=== PATIENT | female | born 1930 | race Caucasian/White ===

== ENCOUNTER 2018-01-08 20:46 | Inpatient (IN) | payer MEDICARE, OTHER ==
[~2018-01-08] VITALS: Ht 160 cm; Wt 90.8 kg
--- NOTE | 2018-01-08 21:00 | NUR ---
Dr. Mccoy at bedside for MSE.
[2018-01-08] MEDS ORDERED: IV NORMAL SALINE 1000 ML BAG IV ONE (21:15)
[2018-01-08] MEDS ORDERED: LORA1TAB PO (21:24)
[2018-01-08] MEDS ORDERED: URSO300C12 PO (21:24)
[2018-01-08] MEDS ORDERED: OMEP20TA5 PO (21:24)
[2018-01-08] MEDS ORDERED: PRED1TAB PO (21:24)
[2018-01-08] MEDS ORDERED: LISI10TA5 PO (21:24)
[2018-01-08] MEDS ORDERED: CALCIO PO (21:24)
[2018-01-08] MEDS ORDERED: AMIO200T4 PO (21:24)
[2018-01-08] MEDS ORDERED: POTA10CA43 PO (21:24)
[2018-01-08] MEDS ORDERED: FOLI1TAB16 PO (21:24)
[2018-01-08] MEDS ORDERED: FERR325T24 PO (21:24)
[2018-01-08] MEDS ORDERED: GLIP5TAB13 PO (21:24)
[2018-01-08] MEDS ORDERED: AMLO5TAB2 PO (21:24)
[2018-01-08] MEDS ORDERED: PRAV20TA4 PO (21:24)
--- NOTE | 2018-01-08 21:24 | NUR ---
Pt out of ER for CT.
[2018-01-08 21:27] LABS: BASOPHILS # (AUTO) 0.1 K/uL (0.0-8.0); BASOPHILS % (AUTO) 0.8 % (0.0-2.0); EOSINOPHILS # (AUTO) 0.2 K/uL (0.0-0.7); EOSINOPHILS % (AUTO) 3.7 % (0.0-7.0); HEMATOCRIT 38.8 % (31.2-41.9); HEMOGLOBIN 12.1 g/dL (10.9-14.3); LYMPHOCYTES # (AUTO) 0.7 K/uL (20.0-40.0); LYMPHOCYTES % (AUTO) 11.5 % (20.5-51.5); MEAN CORPUSCULAR HEMOGLOBIN 25.2 uug (24.7-32.8); MEAN CORPUSCULAR HGB CONC 31 g/dL (32.3-35.6); MEAN CORPUSCULAR VOLUME 80.7 fL (75.5-95.3); MONOCYTES # (AUTO) 0.6 K/uL (2.0-10.0); MONOCYTES % (AUTO) 8.8 % (0.0-11.0); NEUTROPHILS # (AUTO) 4.8 K/uL (1.8-8.9); NEUTROPHILS % (AUTO) 75.2 % (38.5-71.5); PLATELET COUNT (AUTO) 344 K/uL (179-408); RED BLOOD CELL COUNT(AUTO) 4.81 MIL/uL (3.63-4.92); WHITE BLOOD COUNT (AUTO) 6.4 K/uL (3.8-11.8)
[2018-01-08 21:31] LABS: CARBON DIOXIDE 30 mmol/L (21-32); CHLORIDE 104 mmol/L (98-107); CREATININE 1.1 mg/dL (0.6-1.3); GLUCOSE 104 mg/dL (74-106); POTASSIUM 3.8 mmol/L (3.5-5.1); UREA NITROGEN, BLOOD 12 mg/dL (7-18)
[2018-01-08 21:43] LABS: ALANINE AMINOTRANSFERASE 23 U/L (14-59); ALKALINE PHOSPHATASE 51 U/L (50-136); ASPARTATE AMINOTRANSFERASE 19 U/L (15-37); BILIRUBIN,DIRECT 0.1 mg/dL (0.0-0.2); BILIRUBIN,TOTAL 0.3 mg/dL (0.2-1.0); TOTAL PROTEIN, SERUM 6.6 g/dL (6.4-8.2)
--- NOTE | 2018-01-08 21:44 | NUR ---
Pt back to ER from CT.
[2018-01-08] MEDS ORDERED: PIPERACILLIN/TAZOBACTAM/D5W 3.375 G in PREMIXED 1 EACH IV STA (22:04)
[2018-01-08] MEDS ORDERED: LEVOFLOXACIN 500 MG/D5W 100ML PIGGYBACK IV ONE (22:15)
--- NOTE | 2018-01-08 22:47 | NUR ---
[facility] for panel call.
[2018-01-08 23:02] LABS: *BILIRUBIN,URIN NEGATIVE (NEGATIVE); *BLOOD, URINE NEGATIVE (NEGATIVE); *CLARITY,URINE CLEAR (CLEAR); *COLOR,URINE YELLOW (YELLOW); *KETONES,URINE NEGATIVE (NEGATIVE); *PROTEIN,URINE TRACE (NEGATIVE); *UROBILINOGEN,URINE 0.2 E.U./dl (NORMAL); LEUKOCYTE ESTERASE ,URINE NEGATIVE (NEGATIVE); NITRITE, URINE NEGATIVE (NEGATIVE); UGLUCOSE NEGATIVE (NEGATIVE)
[2018-01-08] MEDS ORDERED: LEVOFLOXACIN 500 MG/D5W 100 ML ONE (23:06)
[2018-01-08] MEDS ORDERED: PIPERACILLIN/TAZOBACTAM/D5W 50 ML IV ONE (23:06)
--- NOTE | 2018-01-08 23:06 | NUR ---
Dr. Mccoy on panel call with Dr. Abdelrahman Mcneil.
[2018-01-08 23:12] LABS: RBC,URINE 0-3 /HPF (0-3)
[2018-01-08 23:13] LABS: BACTERIA,URINE NONE SEEN /HPF (NONE SEEN); SQUAMOUS EPITHELIAL CELL,UR FEW /HPF (NONE SEEN)
[2018-01-08] MEDS ORDERED: ONDANSETRON 4 MG/2 ML VIAL IV PRN (23:30)
[2018-01-08] MEDS ORDERED: ALBUTEROL SULFATE 2.5 MG/3 ML NEBU NEB PRN (23:30)
[2018-01-08] MEDS ORDERED: MORPHINE SULFATE 2 MG/1 ML DISP.SYRIN IV PRN (23:30)
[2018-01-08] MEDS ORDERED: GUAIFENESIN/DEXTROMETHORPHAN 5 ML UDC PO PRN (23:30)
--- NOTE | 2018-01-08 23:45 | NUR ---
Report given to Rhianna ZHANG Tele.
--- NOTE | 2018-01-09 00:35 | NUR ---
ADMITTED A 87 YEARS OLD FEMALE WITH DIAGNOSIS OF SEPSIS. ACCOMPANIED BY PATIENT SON JOHNNY. PATIENT AAOX3. IN NO ACUTE DISTRESS. ON CONTINUOUS O2 AT 2LPM VIA NC IN PLACE. O2 SAT AT 98%. IV SITE ON RIGHT AC INTACT AND PATENT. WILL START TO RUN LEVAQUIN IV ABX AND PT TO CONTINUE WITH IV BOLUS UNTIL BAG 1 BAG IS FINISH PER ER NURSE BURKE. ROUTINE ADMISSION CARE DONE. PLAN OF CARE INITIATED. SAFETY MEASURE INITIATED AND CALL BARAJAS WITHIN REACH.
[2018-01-09 00:40] VITALS: BP 137/67
--- NOTE | 2018-01-09 00:46 | NUR ---
Pt sent to [facility]/Tele floor. IV fluids/antibiotic to continue infusing, endorsed to nurse Rhianna ZHANG Tele.
[2018-01-09] MEDS ORDERED: LEVOFLOXACIN 500 MG/D5W 500 MG in PREMIXED 1 EACH IV SCH (01:00)
[2018-01-09] MEDS: ACETAMINOPHEN 325 MG TABLET PO PRN (01:43)
[2018-01-09 03:38] VITALS: BP 125/38
[2018-01-09 06:03] LABS: BASOPHILS # (AUTO) 0.1 K/uL (0.0-8.0); BASOPHILS % (AUTO) 0.9 % (0.0-2.0); EOSINOPHILS # (AUTO) 0.2 K/uL (0.0-0.7); EOSINOPHILS % (AUTO) 2.7 % (0.0-7.0); HEMATOCRIT 33.7 % (31.2-41.9); HEMOGLOBIN 10.4 g/dL (10.9-14.3); LYMPHOCYTES # (AUTO) 0.7 K/uL (20.0-40.0); LYMPHOCYTES % (AUTO) 9.8 % (20.5-51.5); MEAN CORPUSCULAR HEMOGLOBIN 25.4 uug (24.7-32.8); MEAN CORPUSCULAR HGB CONC 31 g/dL (32.3-35.6); MONOCYTES # (AUTO) 0.7 K/uL (2.0-10.0); MONOCYTES % (AUTO) 9.8 % (0.0-11.0); NEUTROPHILS # (AUTO) 5.6 K/uL (1.8-8.9); NEUTROPHILS % (AUTO) 76.8 % (38.5-71.5); PLATELET COUNT (AUTO) 299 K/uL (179-408); RED BLOOD CELL COUNT(AUTO) 4.11 MIL/uL (3.63-4.92); WHITE BLOOD COUNT (AUTO) 7.3 K/uL (3.8-11.8)
[2018-01-09] MEDS: PANTOPRAZOLE SODIUM 40 MG TABLET.DR PO SCH (06:09)
--- NOTE | 2018-01-09 06:16 | NUR ---
PATIENT AAOX3. IN NO ACUTE DISTRESS. ON CONTINUOUS O2 AT 2LPM VIA NC IN PLACE. O2 SAT AT 98%. OCCASIONAL COUGH AND ABLE TO EXPECTORATE PHLEGM. NSR ON TELE AT 60/MIN. IV SITE ON RIGHT AC INTACT AND PATENT. NEEDS ATTENDED TO AND MET. SAFETY MEASURE MAINTAINED AND CALL BARAJAS WITHIN REACH.
[2018-01-09 06:29] LABS: ALANINE AMINOTRANSFERASE 20 U/L (14-59); ALKALINE PHOSPHATASE 40 U/L (50-136); ASPARTATE AMINOTRANSFERASE 16 U/L (15-37); BILIRUBIN,TOTAL 0.2 mg/dL (0.2-1.0); CARBON DIOXIDE 24 mmol/L (21-32); CHLORIDE 109 mmol/L (98-107); CREATININE 1.2 mg/dL (0.6-1.3); GLUCOSE 110 mg/dL (74-106); MAGNESIUM 1.7 mg/dL (1.8-2.4); PHOSPHOROUS 3.2 mg/dL (2.5-4.9); POTASSIUM 4.1 mmol/L (3.5-5.1); TOTAL PROTEIN, SERUM 5.6 g/dL (6.4-8.2); UREA NITROGEN, BLOOD 13 mg/dL (7-18)
--- NOTE | 2018-01-09 07:43 | NUR ---
RECEIVED SHIFT REPORT FROM LEATHA ADAME. PT SITTING ON THE SIDE OF THE BED. DENIES PAIN, C/P, SOB, N/V. BED IN LOW AND LOCKED POSITION WITH BILATERAL UPPER SIDERAILS UP. CALL LIGHT WITHIN REACH. IV ACCESS 20 G IN R AC, SALINE LOCKED. WILL CONTINUE TO MONITOR.
[2018-01-09] MEDS: AMIODARONE HCL 200 MG TABLET PO SCH (08:34)
[2018-01-09] MEDS: AMLODIPINE 5 MG TABLET PO SCH (08:34)
[2018-01-09] MEDS: FOLIC ACID 1 MG TABLET PO SCH (08:34)
[2018-01-09] MEDS: predniSONE 1 MG TABLET PO SCH (08:35)
--- NOTE | 2018-01-09 08:41 | NUR ---
PT REFUSES BILATERAL UPPER SIDERAILS TO BE UP. ONLY UPPER LEFT SIDERAIL IS UP, PER PT'S REQUEST. WILL PROVIDE FREQUENT VISUAL MONITORING TO ENSURE PT SAFETY.
--- NOTE | 2018-01-09 08:43 | NUR ---
PT NSR ON TELE MONITORING - RANGING IN THE 70 BPM.
[2018-01-09] MEDS: URSODIOL 300 MG CAPSULE PO SCH (08:45)
--- NOTE | 2018-01-09 08:45 | NUR ---
PT TAKEN DOWN TO RADIOLOGY VIA W/C BY TRANSPORT.
[2018-01-09] MEDS ORDERED: FERROUS SULFATE 325 MG TABEC PO SCH (09:00)
--- NOTE | 2018-01-09 09:15 | NUR ---
PT ARRIVED BACK ON TELE FLOOR VIA W/C BY TRANSPORT.
[2018-01-09 10:53] VITALS: BP 127/60
--- NOTE | 2018-01-09 11:22 | NUR ---
PT RESTING IN BED AT THIS TIME. NIRMAL PAIN, C/P, SOB, N/V. NSR ON TELE MONITORING. CALL LIGHT WITHIN REACH. PT STILL REFUSING USE BILATERAL UPPER SIDERAILS. WILL CONTINUE TO MONITOR.
[2018-01-09] MEDS ORDERED: MAGNESIUM SULFATE/D5W 100 ML IV SCH (11:30)
[2018-01-09 12:00] LABS: IRON, SERUM 16 ug/dL (50-175)
[2018-01-09] MEDS ORDERED: IPRATROPIUM BROMIDE 0.5 MG/2.5 ML NEBU NEB PRN (12:00)
--- NOTE | 2018-01-09 13:36 | NUR ---
PT NSR ON TELE MONITORING. RECEIVED ORDER TO D/C TELE. PT NOW ON MED-SURG STATUS.
[2018-01-09] MEDS: GABAPENTIN 100 MG CAPSULE PO SCH ×2 (14:45→17:21)
[2018-01-09] MEDS: ALBUTEROL SULFATE 2.5 MG/3 ML NEBU NEB SCH ×2 (15:05→19:28)
[2018-01-09] MEDS: IPRATROPIUM BROMIDE 0.5 MG/2.5 ML NEBU NEB SCH ×2 (15:05→19:28)
[2018-01-09 15:11] VITALS: BP 148/58
[2018-01-09] MEDS: methylPREDNISolone SOD SUCC 40 MG/ML VIAL IV SCH ×2 (16:06→21:06)
[2018-01-09 19:00] VITALS: BP 128/67
--- NOTE | 2018-01-09 19:07 | NUR ---
SHIFT REPORT GIVEN TO LEATHA FARMER. PT SITTING IN CHAIR AT BEDSIDE. STABLE AT THIS TIME, DENIES PAIN, C/P, SOB, N/V. PT IS ON CONTINUOUS O2 2 LPM VIA N/C. CALL LIGHT WITHIN REACH. PT VERBALIZES UNDERSTANDING TO USE CALL LIGHT BEFORE ATTEMPTING TO RETURN TO BED. IV ACCESS 20 G IN R FOREARM, SALINE LOCKED.
--- NOTE | 2018-01-09 19:46 | NUR ---
Received pt sitting up in chair by bedside with 2L O2 via NC in place. Pt denying pain, discomfort and SOB. Made aware of plan of care. Safe environment implemented at all times. Call light within reach.
[2018-01-09] MEDS: FERROUS SULFATE 325 MG TABEC PO SCH (20:06)
[2018-01-09] MEDS: DOCUSATE SODIUM 100 MG CAPSULE PO SCH (20:06)
[2018-01-09] MEDS: LEVOFLOXACIN 250MG /D5W 250 MG in PREMIXED 1 EACH IV SCH (20:06)
[2018-01-10] MEDS: IPRATROPIUM BROMIDE 0.5 MG/2.5 ML NEBU NEB SCH ×4 (00:30→19:12)
[2018-01-10] MEDS: ALBUTEROL SULFATE 2.5 MG/3 ML NEBU NEB SCH ×4 (00:30→19:12)
[2018-01-10] MEDS: ACETAMINOPHEN 325 MG TABLET PO PRN ×3 (02:19→20:22)
[2018-01-10 04:00] VITALS: BP 139/52
[2018-01-10 05:42] LABS: BASOPHILS % (AUTO) 0.5 % (0.0-2.0); EOSINOPHILS % (AUTO) 0.1 % (0.0-7.0); HEMATOCRIT 32.9 % (31.2-41.9); HEMOGLOBIN 10.2 g/dL (10.9-14.3); LYMPHOCYTES # (AUTO) 0.3 K/uL (20.0-40.0); LYMPHOCYTES % (AUTO) 4.7 % (20.5-51.5); MEAN CORPUSCULAR HEMOGLOBIN 25.3 uug (24.7-32.8); MEAN CORPUSCULAR HGB CONC 31 g/dL (32.3-35.6); MEAN CORPUSCULAR VOLUME 81.7 fL (75.5-95.3); MONOCYTES # (AUTO) 0.1 K/uL (2.0-10.0); NEUTROPHILS # (AUTO) 5.7 K/uL (1.8-8.9); NEUTROPHILS % (AUTO) 93.7 % (38.5-71.5); PLATELET COUNT (AUTO) 304 K/uL (179-408); RED BLOOD CELL COUNT(AUTO) 4.02 MIL/uL (3.63-4.92); WHITE BLOOD COUNT (AUTO) 6.1 K/uL (3.8-11.8)
[2018-01-10 06:05] LABS: THYROID STIMULATING HORMONE 0.299 mIU/mL (0.358-3.740)
[2018-01-10 06:10] LABS: ALANINE AMINOTRANSFERASE 23 U/L (14-59); ALKALINE PHOSPHATASE 45 U/L (50-136); ASPARTATE AMINOTRANSFERASE 16 U/L (15-37); BILIRUBIN,TOTAL 0.2 mg/dL (0.2-1.0); CARBON DIOXIDE 24 mmol/L (21-32); CHLORIDE 108 mmol/L (98-107); CHOLESTEROL 183 mg/dL (<200); CREATININE 1.1 mg/dL (0.6-1.3); GLUCOSE 143 mg/dL (74-106); HDL CHOLESTEROL 97 mg/dL (40-60); MAGNESIUM 1.9 mg/dL (1.8-2.4); PHOSPHOROUS 2.2 mg/dL (2.5-4.9); POTASSIUM 4.2 mmol/L (3.5-5.1); TOTAL PROTEIN, SERUM 6.4 g/dL (6.4-8.2); TRIGLYCERIDES 44 MG/DL (30-150); UREA NITROGEN, BLOOD 13 mg/dL (7-18)
[2018-01-10] MEDS: PANTOPRAZOLE SODIUM 40 MG TABLET.DR PO SCH (06:12)
[2018-01-10] MEDS: methylPREDNISolone SOD SUCC 40 MG/ML VIAL IV SCH ×3 (06:12→21:09)
--- NOTE | 2018-01-10 06:40 | NUR ---
Stable condition throughout the night. No s/s of acute distress noted at this time. Safe environment implemented. Call light within reach.
[2018-01-10] MEDS: FOLIC ACID 1 MG TABLET PO SCH (08:51)
[2018-01-10] MEDS: GABAPENTIN 100 MG CAPSULE PO SCH ×3 (08:51→16:32)
[2018-01-10] MEDS: predniSONE 1 MG TABLET PO SCH (08:51)
[2018-01-10] MEDS: FERROUS SULFATE 325 MG TABEC PO SCH ×2 (08:51→20:22)
[2018-01-10] MEDS: AMLODIPINE 5 MG TABLET PO SCH (08:52)
[2018-01-10] MEDS: URSODIOL 300 MG CAPSULE PO SCH (08:52)
[2018-01-10] MEDS: AMIODARONE HCL 200 MG TABLET PO SCH (08:52)
[2018-01-10] MEDS ORDERED: NEUTRA PHOS PACKET PO ONE (10:45)
[2018-01-10 11:25] VITALS: BP 104/65
[2018-01-10] MEDS ORDERED: LORAZEPAM 0.5 MG TABLET PO PRN (15:00)
[2018-01-10 15:53] VITALS: BP 141/56
[2018-01-10] MEDS ORDERED: Z GUARD REMEDY PASTE 57 GM TUBE TOP PRN (16:00)
[2018-01-10] MEDS: BLOOD SUGAR DIAGNOSTIC 1 EACH STRIP VI SCH (16:32)
--- NOTE | 2018-01-10 18:27 | NUR ---
PATIENT ALERT, IN NO DISTRESS. ACCUCHECKS DONE ORDERED. PT ON ROUTINE BREATHING TX, NO S/S OF SOB, NO C/O OF CHEST PAIN. VS STABLE, AFEBRILE. SAFETY MEASURES IN PLACE.
[2018-01-10 19:28] VITALS: BP 134/68
--- NOTE | 2018-01-10 19:30 | NUR ---
Patient alert, awake, sitting at the bedside at the start of shift. No acute distress noted. A/Ox4 & able to make all her needs known. Pertinent assessment completed. Vital signs within range at start of shift. IV site in right forearm 22G flushing well. On o2 via NC at 2L. Patient denies SOB & pain at start of shift. Patient noted with some persistent coughing. Call light within reach. Will continue to monitor through shift.
[2018-01-10] MEDS: DOCUSATE SODIUM 100 MG CAPSULE PO SCH (20:22)
[2018-01-10] MEDS: LEVOFLOXACIN 250MG /D5W 250 MG in PREMIXED 1 EACH IV SCH (20:23)
[2018-01-11] MEDS: ALBUTEROL SULFATE 2.5 MG/3 ML NEBU NEB SCH ×4 (00:37→19:14)
[2018-01-11] MEDS: IPRATROPIUM BROMIDE 0.5 MG/2.5 ML NEBU NEB SCH ×4 (00:37→19:14)
[2018-01-11] MEDS: MELATONIN 3 MG TABLET PO PRN (02:03)
[2018-01-11 03:39] VITALS: BP 141/49
[2018-01-11] MEDS: methylPREDNISolone SOD SUCC 40 MG/ML VIAL IV SCH ×2 (05:32→20:55)
[2018-01-11 06:00] LABS: HEMATOCRIT 32.7 % (31.2-41.9); HEMOGLOBIN 10.3 g/dL (10.9-14.3); LYMPHOCYTES # (AUTO) 0.3 K/uL (20.0-40.0); LYMPHOCYTES % (AUTO) 2.5 % (20.5-51.5); MEAN CORPUSCULAR HEMOGLOBIN 25.2 uug (24.7-32.8); MEAN CORPUSCULAR HGB CONC 32 g/dL (32.3-35.6); MEAN CORPUSCULAR VOLUME 79.5 fL (75.5-95.3); MONOCYTES # (AUTO) 0.4 K/uL (2.0-10.0); MONOCYTES % (AUTO) 2.6 % (0.0-11.0); NEUTROPHILS # (AUTO) 13.3 K/uL (1.8-8.9); NEUTROPHILS % (AUTO) 94.9 % (38.5-71.5); PLATELET COUNT (AUTO) 345 K/uL (179-408); RED BLOOD CELL COUNT(AUTO) 4.11 MIL/uL (3.63-4.92)
[2018-01-11 06:18] LABS: ALANINE AMINOTRANSFERASE 24 U/L (14-59); ALKALINE PHOSPHATASE 46 U/L (50-136); ASPARTATE AMINOTRANSFERASE 18 U/L (15-37); BILIRUBIN,TOTAL 0.3 mg/dL (0.2-1.0); CARBON DIOXIDE 25 mmol/L (21-32); CHLORIDE 107 mmol/L (98-107); GLUCOSE 134 mg/dL (74-106); MAGNESIUM 2.2 mg/dL (1.8-2.4); PHOSPHOROUS 2.8 mg/dL (2.5-4.9); POTASSIUM 4.2 mmol/L (3.5-5.1); TOTAL PROTEIN, SERUM 6.4 g/dL (6.4-8.2); UREA NITROGEN, BLOOD 17 mg/dL (7-18)
[2018-01-11] MEDS: PANTOPRAZOLE SODIUM 40 MG TABLET.DR PO SCH (06:24)
--- NOTE | 2018-01-11 06:29 | NUR ---
Patient slept intermittently through the shift. No acute distress noted. All needs attended to. All meds given per MD order. Patient continues to have dry cough. Administered PRN med per MD order. Patient compliant with care. Blood sugar this AM at 135. Skin care provided under breast folds. Safety measures maintained. Call light within reach. will endorsee accordingly.
[2018-01-11] MEDS: BLOOD SUGAR DIAGNOSTIC 1 EACH STRIP VI SCH ×2 (06:38→17:29)
[2018-01-11 08:08] LABS: *IMMUNOGLOBULIN G, SERUM 530 mg/dL (700-1600); IMMUNOGLOBULIN A, SERUM 82 mg/dL (64-422); IMMUNOGLOBULIN M, SERUM 54 mg/dL (26-217)
[2018-01-11] MEDS: URSODIOL 300 MG CAPSULE PO SCH (08:14)
[2018-01-11] MEDS: FERROUS SULFATE 325 MG TABEC PO SCH ×2 (08:14→20:55)
[2018-01-11] MEDS: predniSONE 1 MG TABLET PO SCH (08:14)
[2018-01-11] MEDS: GABAPENTIN 100 MG CAPSULE PO SCH ×3 (08:14→17:31)
[2018-01-11] MEDS: FOLIC ACID 1 MG TABLET PO SCH (08:14)
[2018-01-11] MEDS: AMLODIPINE 5 MG TABLET PO SCH (09:04)
[2018-01-11 11:03] VITALS: BP 140/55
[2018-01-11] MEDS: SOD FERRIC GLUC COMPLX/SUCROSE 125 MG in IV NORMAL SALINE 100 ML IV SCH (14:20)
[2018-01-11 15:03] VITALS: BP 122/56
--- NOTE | 2018-01-11 18:24 | NUR ---
PATIENT ALERT, IN NO DISTRESS, NO C/O OF SOB, CHEST PAIN. VS STABLE, AFEBRILE. PATIENT REMAINS TO HAVE OCCASIONAL PRODUCTIVE COUGH, IMPROVEMENT AND LESS COUGHING NOTED COMPARED TO YESTERDAY. ASSISTED PATIENT WITH TOILETING NEEDS. SAFETY MEASURES IN PLACE. WILL CONTINUE TO MONITOR.
[2018-01-11 19:23] VITALS: BP 132/46
--- NOTE | 2018-01-11 20:00 | NUR ---
Recieved patient sitting comfortably in chair. Asleep and in no acute distress noted. Patient is on O2 2L NC. Per AM nurse, she is A/O x 4. Noted bilateral arms bruising. IV on the left wrist patent and intact. Safety initiated. Call light within reach. Room is kept clutter free. Will continue to monitor.
[2018-01-11] MEDS: LEVOFLOXACIN 250MG /D5W 250 MG in PREMIXED 1 EACH IV SCH (20:54)
[2018-01-11] MEDS: DOCUSATE SODIUM 100 MG CAPSULE PO SCH (20:55)
[2018-01-12] MEDS: IPRATROPIUM BROMIDE 0.5 MG/2.5 ML NEBU NEB SCH ×3 (00:30→14:02)
[2018-01-12] MEDS: ALBUTEROL SULFATE 2.5 MG/3 ML NEBU NEB SCH ×3 (00:30→14:02)
[2018-01-12] MEDS: MELATONIN 3 MG TABLET PO PRN (02:16)
[2018-01-12 03:38] VITALS: BP 157/69
--- NOTE | 2018-01-12 05:38 | NUR ---
Patient slept intermittently t/o shift. No acute distress noted. Patient's routine breathing tx done. Patient remains on O2 2L NC. Vital signs stable. Safety and comfort measures maintained t/o shift. Accuchecks done as ordered. All meds given as ordered. All needs met.
[2018-01-12] MEDS: PANTOPRAZOLE SODIUM 40 MG TABLET.DR PO SCH (06:08)
[2018-01-12] MEDS: AMLODIPINE 5 MG TABLET PO SCH (06:15)
--- NOTE | 2018-01-12 06:16 | NUR ---
BP running high this AM. Norvasc given early. Will continue to monitor.
[2018-01-12] MEDS: BLOOD SUGAR DIAGNOSTIC 1 EACH STRIP VI SCH ×2 (06:31→16:51)
[2018-01-12 07:48] LABS: BASOPHILS % (AUTO) 0.3 % (0.0-2.0); EOSINOPHILS % (AUTO) 0.3 % (0.0-7.0); HEMOGLOBIN 10.3 g/dL (10.9-14.3); LYMPHOCYTES # (AUTO) 0.3 K/uL (20.0-40.0); LYMPHOCYTES % (AUTO) 2.5 % (20.5-51.5); MEAN CORPUSCULAR HEMOGLOBIN 25.2 uug (24.7-32.8); MEAN CORPUSCULAR HGB CONC 31 g/dL (32.3-35.6); MEAN CORPUSCULAR VOLUME 80.7 fL (75.5-95.3); MONOCYTES # (AUTO) 0.5 K/uL (2.0-10.0); MONOCYTES % (AUTO) 3.5 % (0.0-11.0); NEUTROPHILS # (AUTO) 12.8 K/uL (1.8-8.9); NEUTROPHILS % (AUTO) 93.4 % (38.5-71.5); PLATELET COUNT (AUTO) 333 K/uL (179-408); WHITE BLOOD COUNT (AUTO) 13.7 K/uL (3.8-11.8)
[2018-01-12 08:00] LABS: RED BLOOD CELL COUNT(AUTO) 4.14 MIL/uL (3.63-4.92)
[2018-01-12 08:03] LABS: ALANINE AMINOTRANSFERASE 25 U/L (14-59); ALKALINE PHOSPHATASE 42 U/L (50-136); ASPARTATE AMINOTRANSFERASE 16 U/L (15-37); BILIRUBIN,TOTAL 0.2 mg/dL (0.2-1.0); CARBON DIOXIDE 24 mmol/L (21-32); CHLORIDE 105 mmol/L (98-107); GLUCOSE 159 mg/dL (74-106); MAGNESIUM 2.3 mg/dL (1.8-2.4); PHOSPHOROUS 3.2 mg/dL (2.5-4.9); POTASSIUM 4.1 mmol/L (3.5-5.1); TOTAL PROTEIN, SERUM 6.2 g/dL (6.4-8.2); UREA NITROGEN, BLOOD 20 mg/dL (7-18)
[2018-01-12 08:29] LABS: BAND % (MANUAL) 3 % (0-10); LYMPHOCYTES % (MANUAL) 3 % (20-40); METAMYELOCYTES % 1 % (0-1); MONOCYTES % (MANUAL) 4 % (2-10); NEUTROPHILS % (MANUAL) 89 % (42-75)
[2018-01-12] MEDS: FOLIC ACID 1 MG TABLET PO SCH (08:41)
[2018-01-12] MEDS: FERROUS SULFATE 325 MG TABEC PO SCH (08:41)
[2018-01-12] MEDS: GABAPENTIN 100 MG CAPSULE PO SCH ×3 (08:41→16:55)
[2018-01-12] MEDS: URSODIOL 300 MG CAPSULE PO SCH (08:42)
[2018-01-12] MEDS: methylPREDNISolone SOD SUCC 40 MG/ML VIAL IV SCH (08:42)
[2018-01-12 09:00] VITALS: BP 138/59
[2018-01-12] MEDS ORDERED: predniSONE 1 MG TABLET PO SCH (09:00)
[2018-01-12 11:34] VITALS: BP 162/62
[2018-01-12] MEDS ORDERED: CLONIDINE HCL 0.1 MG TABLET PO PRN (12:45)
[2018-01-12] MEDS ORDERED: Blood Sugar Diagnostic VI (12:56)
[2018-01-12] MEDS ORDERED: LORA0.5T48 PO (12:56)
[2018-01-12] MEDS ORDERED: FERR325T28 PO (12:56)
[2018-01-12] MEDS ORDERED: IPRA0.2S6 NEB ×2 (12:56)
[2018-01-12] MEDS ORDERED: PRED10TA PO (12:56)
[2018-01-12] MEDS ORDERED: PRED20TA PO ×2 (12:56)
[2018-01-12] MEDS ORDERED: AMLO5TAB2 PO (12:56)
[2018-01-12] MEDS ORDERED: PRED-170 PO (12:56)
[2018-01-12] MEDS ORDERED: ALBU2.5V7 NEB ×2 (12:56)
[2018-01-12] MEDS ORDERED: CLON0.1T14 PO (12:56)
[2018-01-12] MEDS ORDERED: GABA-532 PO (12:56)
[2018-01-12] MEDS ORDERED: ACET325T53 PO (12:56)
[2018-01-12] MEDS ORDERED: DOCU100C36 PO (12:56)
[2018-01-12] MEDS ORDERED: MELA3TAB PO (12:56)
[2018-01-12] MEDS ORDERED: PANT40TA2 PO (12:56)
[2018-01-12] MEDS ORDERED: GUAI5SYR PO (12:56)
[2018-01-12] MEDS: SOD FERRIC GLUC COMPLX/SUCROSE 125 MG in IV NORMAL SALINE 100 ML IV SCH (13:44)
[2018-01-12] MEDS ORDERED: METO25TA6 PO (14:33)
[2018-01-12] MEDS ORDERED: METOPROLOL TARTRATE 25 MG TABLET PO SCH (14:45)
[2018-01-12 15:14] VITALS: BP 151/79
--- NOTE | 2018-01-12 16:00 | NUR ---
Discharge instructions given to patient. Pt verbalized understanding. Report given to GILLIAN ZHANG from [facility]. Held metoprolol secondary to pt was given clonidine and current sbp of 120's. Clonidine effective. No sob noted. IV intact.
[2018-01-12 16:26] VITALS: BP 129/53
[2018-01-12] MEDS ORDERED: predniSONE 20 MG TABLET PO SCH (18:00)
[2018-01-12] MEDS ORDERED: AMLODIPINE 5 MG TABLET PO SCH (21:00)
[2018-01-13 10:07] LABS: A/G RATIO 1.5 (0.7-1.7); ALBUMIN 3.5 g/dL (2.9-4.4); ALPHA-1-GLOBULIN 0.3 g/dL (0.0-0.4); ALPHA-2-GLOBULIN 0.7 g/dL (0.4-1.0); BETA GLOBULIN 0.8 g/dL (0.7-1.3); GAMMA GLOBULIN 0.6 g/dL (0.4-1.8); GLOBULIN, TOTAL 2.3 g/dL (2.2-3.9); M-SPIKE Not Observed g/dL (Not Observed)
[2018-01-13] MEDS ORDERED: predniSONE 20 MG TABLET PO SCH (18:00)
[2018-01-15] MEDS ORDERED: predniSONE 10 MG TABLET PO SCH (18:00)
[2018-01-17] MEDS ORDERED: predniSONE 5 MG TABLET PO SCH (18:00)
== END 2018-01-12 17:30 | DRG 871 ==
LOC: ER 20:47 → TELE 22:50 → MED 01-09 14:15
PROVIDERS: ADMIT Internal Medicine; ATTEND Internal Medicine
DX: A41.9 Sepsis, unspecified organism (principal); J18.9 Pneumonia, unspecified organism; J91.8 Pleural effusion in other conditions classified elsewhere; J44.0 Chronic obstructive pulmonary disease with (acute) lower respiratory infection; J44.1 Chronic obstructive pulmonary disease with (acute) exacerbation; E44.0 Moderate protein-calorie malnutrition; J98.11 Atelectasis; Z87.891 Personal history of nicotine dependence; J20.9 Acute bronchitis, unspecified; E66.9 Obesity, unspecified; Z68.35 Body mass index [BMI] 35.0-35.9, adult; Z71.3 Dietary counseling and surveillance; E11.65 Type 2 diabetes mellitus with hyperglycemia; D50.9 Iron deficiency anemia, unspecified; E05.10 Thyrotoxicosis with toxic single thyroid nodule without thyrotoxic crisis or storm; Z79.899 Other long term (current) drug therapy; Z99.81 Dependence on supplemental oxygen; I48.0 Paroxysmal atrial fibrillation; R91.8 Other nonspecific abnormal finding of lung field; N28.1 Cyst of kidney, acquired; E67.8 Other specified hyperalimentation; K43.9 Ventral hernia without obstruction or gangrene; I70.0 Atherosclerosis of aorta; I11.9 Hypertensive heart disease without heart failure; I35.8 Other nonrheumatic aortic valve disorders; Z90.710 Acquired absence of both cervix and uterus; E83.42 Hypomagnesemia; E83.51 Hypocalcemia; D72.829 Elevated white blood cell count, unspecified; T38.0X5A Adverse effect of glucocorticoids and synthetic analogues, initial encounter; Y92.230 Patient room in hospital as the place of occurrence of the external cause
CPT/HCPCS: 36415; 70030-TC; 70450; 71045; 71250; 82746; 82784; 83550; 83605; 83735; 84100; 84155; 84165; 84443; 84481; 85025; 85610; 85730; 86334; 87040; 87086; 93005; 93307; 94640; 94664; 97116; 97530; A4663; C1758; J1956; J2405; J2543; J2916; J2920; J3475; J3490; J3590; J7030; J7040; J7512